=== PATIENT | female | born 1995 | race African-American/Black ===

== ENCOUNTER 2017-06-08 06:52 | Emergency (ER) | payer OTHER, SELFPAY ==
[2017-06-08 07:35] LABS: Hematocrit 39.2 % (36.0-47.0); Mean Platelet Volume 8.1 fL (7.4-10.4); White Blood Cell (WBC) Count 10.1 thou/uL (4.8-10.8)
[2017-06-08 07:43] LABS: Band 3 % (5-11); Neutrophil 71 % (31-61)
[2017-06-08 07:47] LABS: ALT (SGPT) 9 U/L (8-55); AST (SGOT) 14 U/L (5-34); Alkaline Phosphatase 71 U/L (40-150); Anion Gap 13 mmol/L (10-20); BUN (Urea Nitrogen) 17 mg/dL (7.0-18.7); Bilirubin, Total 0.5 mg/dL (0.2-1.2); Calc. Creatinine Clearance 0 mL/min (70-130); Calcium 9.6 mg/dL (7.8-10.44); Carbon Dioxide 23 mmol/L (22-29); Chloride 105 mmol/L (98-107); Estimated GFR-MDRD Greater than 90; Globulin 4.4 g/dL (2.4-3.5); Lipase 22 U/L (8-78); Protein, Total 8.8 g/dL (6.0-8.3)
[2017-06-08 08:02] LABS: Bilirubin Negative (Negative); Blood, Urine Moderate (Negative); Glucose, Urine (Dipstick) Negative (Negative); Ketone, Urine Negative (Negative); Nitrite Positive (Negative); Protein, Urine (Dipstick) 100 mg/dL (Neg-Trace)
[2017-06-08 08:03] LABS: Bacteria/HPF 4+ HPF (None Seen); Hyaline Casts/LPF 4-6 HYALINE CAST LPF (0-3 Hyaline); Squamous Epithelial 0-3 HPF (0-3)
[2017-06-08 08:18] LABS: Yeast-All Forms None Seen HPF (None Seen)
== END 2017-06-08 10:18 | disposition home or self-care (01) ==
LOC: ERS 06:52
DX: N39.0 Urinary tract infection, site not specified (principal)
CPT/HCPCS: 36415; 80053; 81003; 81015; 81025; 83690; 84702; 85025; 86900; 86901; 87077; 87086; 87186; 99284

== ENCOUNTER 2017-06-12 18:46 | Inpatient (IN) | payer SELFPAY ==
[~2017-06-12 18:46] MED LIST: ISOVUE-370 76%-LOCM 1 ML ONE
[2017-06-12] MEDS ORDERED: Ondansetron ODT 4 MG TAB ONE (19:22)
[2017-06-12] MEDS ORDERED: Acetaminophen 500 MG TAB ONE (19:29)
[2017-06-12 19:47] LABS: Hematocrit 33.4 % (36.0-47.0); Mean Platelet Volume 8.1 fL (7.4-10.4); Red Blood Cell (RBC) Count 3.96 mill/uL (4.00-5.20); White Blood Cell (WBC) Count 20.6 thou/uL (4.8-10.8)
[2017-06-12 19:47] LABS: Bilirubin Small (Negative); Blood, Urine Small (Negative); Glucose, Urine (Dipstick) Negative (Negative); Ketone, Urine Trace mg/dL (Negative); Nitrite Negative (Negative); Protein, Urine (Dipstick) 100 mg/dL (Neg-Trace)
[2017-06-12 19:50] LABS: Bacteria/HPF Rare-Few HPF (None Seen)
[2017-06-12 19:59] LABS: Hyaline Casts/LPF 0-3 HYALINE CAST LPF (0-3 Hyaline)
[2017-06-12 20:00] LABS: Yeast-All Forms None Seen HPF (None Seen)
[2017-06-12 20:01] LABS: Anisocytosis SLIGHT = 6-15 cells (100X) (0-5/hpf); Band 30 % (5-11); Dohle Bodies SLIGHT; Neutrophil 67 % (31-61); Ovalocytes SLIGHT = 2-5 cells (100X) (0-1/hpf); Polychromasia SLIGHT = 2-3 cells (100X) (0-2/hpf); Schistocytes SLIGHT = 2-5 cells (100X) (0-1/hpf); Target Cells SLIGHT = 2-5 cells (100X) (0-1/hpf); Toxic Granulation SLIGHT; Vacuoles SLIGHT
[2017-06-12 20:10] LABS: ALT (SGPT) 26 U/L (8-55); AST (SGOT) 32 U/L (5-34); Alkaline Phosphatase 116 U/L (40-150); Anion Gap 13 mmol/L (10-20); BUN (Urea Nitrogen) 30 mg/dL (7.0-18.7); Bilirubin, Total 0.8 mg/dL (0.2-1.2); Calc. Creatinine Clearance 0 mL/min (70-130); Calcium 9.4 mg/dL (7.8-10.44); Carbon Dioxide 24 mmol/L (22-29); Chloride 102 mmol/L (98-107); Estimated GFR-MDRD 58; Globulin 4.8 g/dL (2.4-3.5); Protein, Total 8.4 g/dL (6.0-8.3)
[2017-06-12] MEDS ORDERED: Morphine 2 MG/ML SYRINGE ONE (21:05)
[2017-06-12 21:15] LABS: Lactic Acid - Sepsis 1.2 mmol/L (0.5-2.2)
[2017-06-12] MEDS ORDERED: Sodium Chloride 0.9% 100 ML ONE (21:48)
[2017-06-12] MEDS ORDERED: cefTRIAXone\\ROCEPHIN 2 GM VIAL ONE (21:48)
--- NOTE | 2017-06-12 21:49 | RAD ---
AP CHEST: History: Chest pain. FINDINGS: The lungs are well aerated. No evidence of active intrathoracic disease seen. No evidence of effusio ns, pneumonia, or pneumothorax seen. IMPRESSION: Unremarkable AP chest. POS: [facility]
--- NOTE | 2017-06-12 22:26 | CT ---
ABDOMEN AND PELVIC CT WITH CONTRAST: Clinical history: 21-year-old female with sepsis alert. Pain. Nausea/vomiting. FINDINGS: Mild volume loss is seen at the lung bases. There is moderate distention of the gallbladder with inc reased intraluminal density, wall hyperdensity and pericholecystic fluid. Moderate retained fecal ma terial of the colon is present. There is patchy, heterogenous enhancement of the kidneys bilaterally although more pronounced involving the left kidney. Mild prominence of the left renal collecting sy stem is seen. Pancreas is homogeneous in density. There is mild periportal edema. Borderline size sp kathy is seen. Abdominal aorta is normal in caliber. No free air. Mild nonspecific abdominal/pelvic a scites is present. There are few borderline sized retroperitoneal lymph nodes. No acute osseous path ology. There is heterogeneity of the uterus and adnexa, nonspecific. Findings may be on the basis of physiologic change. Correlate clinically. IMPRESSION: 1. Evidence of pyelonephritis, more notable involving the left kidney. 2. Moderate distention of the gallbladder with internal increased density and mild pericholecystic f luid. This may be further assessed with follow up gallbladder ultrasound. 3. Additional details as above. POS: [facility]
[2017-06-12] MEDS ORDERED: Bisacodyl 10 MG SUPP PR PRN (23:31)
[2017-06-12] MEDS ORDERED: Ondansetron ODT 4 MG TAB PO PRN (23:31)
[2017-06-12] MEDS ORDERED: Bisacodyl 5 MG TAB PO PRN (23:31)
[2017-06-12] MEDS ORDERED: Ondansetron HCl/PF 4 MG/2 ML Vial IVP PRN (23:31)
[2017-06-12] MEDS ORDERED: Acetaminophen 650 MG Suppository PR PRN (23:31)
[2017-06-12] MEDS ORDERED: Calcium Carbonate 500 MG ChewTAB PO PRN (23:31)
[2017-06-12] MEDS: Sodium Chloride 0.9% 1,000 ML IV SCH (23:50)
[2017-06-12] MEDS ORDERED: Polyethylene Glycol 3350 17 GM Packet PO PRN (23:53)
[2017-06-13 00:04] LABS: Lactic Acid - Sepsis 0.7 mmol/L (0.5-2.2)
[2017-06-13] MEDS: Acetaminophen 325 MG TAB PO PRN ×3 (04:58→20:00)
[2017-06-13] MEDS: Sodium Chloride 0.9% 1,000 ML IV SCH ×3 (05:03→18:06)
--- NOTE | 2017-06-13 06:23 | HP-2 ---
LOCATION: [facility] CODE STATUS: FULL. PRIMARY CARE PHYSICIAN: Dr. Mckinley ATTENDING: Dr. Shayy Jackson RESIDENT: Clay Hemphill M.D. CHIEF COMPLAINT: Vomiting and fevers. HISTORY OF PRESENT ILLNESS: This is a 25-year-old female that recently presented t o the ER 3 days ago. At that time she was having fever and having some pain. She was found to have a UTI at this ER visit, was given Bactrim. She had continued taking Bactrim for the last 3 days. She said she continued to have fevers and vomiting that started 2 days ago. She said she has vomite d at least 20 times in the last few days. She has been able to keep fluids down, but has not been a ble to keep food down and not able to eat. She has no history of heartburn and denies any colicky p ain and denies any pain when eating fatty foods. She denies any promiscuous sexual history. No rec ent multiple sexual contacts. In the ER, she was started on vancomycin and Rocephin. PAST MEDICAL HISTORY: None. PAST SURGICAL HISTORY: She has had two C-sections. ALLERGIES: No known drug allergies. MEDICATIONS: She has been taking Aleve for fever. FAMILY HISTORY: None. SOCIAL HISTORY: She is a never smoker, never alcohol. No illicit drug use. REVIEW OF SYSTEMS: She does report having been constipated for the last few days. All other review of systems not listed here are otherwise negative at this time. PHYSICAL EXAMINATION: VITAL SIGNS: Blood pressure is 97/63, pulse 101, respirations 21, temperature is 99.3, pulse oximet ry 91% on room air. GENERAL: She is alert and oriented x3. Well-developed, well-nourished, appropriately interactive. EYES: PERRLA. Conjunctivae normal. ENT: Nasal mucosa were normal. Oropharynx within normal limit. NECK: Supple, no lymphadenopathy, no thyromegaly. CARDIOVASCULAR: Regular rate and rhythm. No murmurs or gallops. Radial pulses, pedal pulses palpa tangela bilaterally. RESPIRATORY: Normal breathing effort. No retractions. Lungs are clear to auscultation bilateral. SKIN: Warm and dry. No lesions noted. Normal capillary refill. ABDOMEN: Soft. It is mildly tender to palpation in the epigastric area and the right and left uppe r quadrant. Bowel sounds heard in all 4 quadrants. No masses or distention. MUSCULOSKELETAL: Moves all extremities bilaterally. NEUROLOGIC: No focal neuro deficit. PSYCHIATRIC: Appropriate. LABORATORY: White blood cell count 20.6, hemoglobin 10.6, hematocrit 33.4, platelets 241, 30% bands and 67% neutrophils. Sodium is 135, potassium 3.7, chloride 102, CO2 is 24, BUN is 30, creatinine 1.4, glucose is 120, calcium is 9.4, AST 32, ALT 26, alkaline phosphatase 116, total bilirubin 0.4, albumin 3.6, total bilirubin is 0.8. Lactic acid is 1.2. Her UA today 06/12/2017 was positive for 100 urine protein, trace of urine ketones, small urine bloo d, negative nitrites, showed a small bilirubin, showed 1 urobilinogen. Moderate leukocyte esterase, 4-6 red blood cells, 11-20 white blood cells, and 7-10 squamous epithel ial cells, rare to few bacteria, 0-3 hyaline casts. On her other ER visit from 06/08/2017, comparing her UA showed 100 urine protein, negative glucose, negative ketones, moderate blood, positive nitrites, negative bilirubin, 1 urobilinogen, large leuko cyte esterase, 7-10 red blood cells, greater than 50 white blood cells, 0-3 squamous epithelial cell s, 4+ bacteria and 4-6 hyaline casts. And then on 06/08/2017, they did do a urine culture at that t [facility], the sensitivities came back, it did show that it grew E. coli and it was resistant to Bactrim a t that time. They also did a chest x-ray which is unremarkable AP chest. ASSESSMENT AND PLAN: 1. Sepsis secondary to urinary tract infection. We will continue Rocephin at this time. From her reports from her urine culture from 06/08/2017, E. coli is sensitive to Rocephin. We will repeat ur ine cultures at this time. We will start her on normal saline at 150. We will give Tylenol for fev er, Zofran for nausea. We will repeat a CBC in the morning. Also, will get blood cultures and cont inue to follow. 2. Acute kidney injury likely it is secondary to fluid loss from vomiting. We will give fluids as in the plan above. We will recheck BMP in the morning and continue to trend creatinine. The patient is a low risk for VTE. Does not need prophylaxis at this time.
--- NOTE | 2017-06-13 06:35 | PDOC.FM ---
- Subjective Subjective: Pt states that she is starting to feel better this morning, however is still complaining of fever and loss of appetite. She has no other specific complains and denies other symptoms in ROS. There were no issues over night. - Objective Vital Signs & Weight: Vital Signs (12 hours) Temp Pulse Resp BP Pulse Ox 06/13/17 05:50 100.1 F H 06/13/17 04:55 99.7 F H 114 H 22 H 109/52 L 06/12/17 23:40 98.2 F 92 20 98/57 L 98 Weight Weight 68 kg I&O: 06/11/17 06/12/17 06/13/17 06:59 06:59 06:59 Intake Total 1083 Output Total 300 Balance 783 Result Diagrams: 06/12/17 19:40 06/12/17 19:40 <Jorge A Angel - Last Filed: 06/13/17 06:33> - Objective Vital Signs & Weight: Vital Signs (12 hours) Temp Pulse Resp BP Pulse Ox 06/13/17 15:10 99.6 F 112 H 20 100/54 L 06/13/17 12:36 95 96/54 L 06/13/17 11:24 97.8 F 95 20 83/50 L 06/13/17 08:52 103 H 103/54 L 06/13/17 07:48 98.5 F 112 H 20 93/51 L 06/13/17 07:27 98.5 F 95 19 99 06/13/17 05:50 100.1 F H 06/13/17 04:55 99.7 F H 114 H 22 H 109/52 L Weight Admit Weight 68 kg Weight 68 kg I&O: 06/12/17 06/13/17 06/14/17 06:59 06:59 06:59 Intake Total 1083 Output Total 300 550 Balance 783 -550 Result Diagrams: 06/13/17 04:55 06/13/17 04:55 <Zoraida Wagner - Last Filed: 06/13/17 15:52> Phys Exam - Physical Examination Constitutional: NAD HEENT: PERRLA, moist MMs Neck: no nodes Respiratory: clear to auscultation bilateral tachycardia, grade 5 murmur over all valves that radiates to the carotid Gastrointestinal: soft, positive bowel sounds CVA tenderness Musculoskeletal: no edema Neurological: non-focal Lymphatic: no nodes Psychiatric: normal affect, A&O x 3 Skin: no rash <Jorge A Angel - Last Filed: 06/13/17 06:33> Dx/Plan (1) Sepsis Code(s): A41.9 - SEPSIS, UNSPECIFIED ORGANISM Status: Acute (2) Pyelonephritis Code(s): N12 - TUBULO-INTERSTITIAL NEPHRITIS, NOT SPCF ACUTE OR CHRONIC Status: Acute (3) Anemia Code(s): D64.9 - ANEMIA, UNSPECIFIED Status: Acute Qualifiers: Anemia type: unspecified type Qualified Code(s): D64.9 - Anemia, unspecified (4) ALVARADO (acute kidney injury) Code(s): N17.9 - ACUTE KIDNEY FAILURE, UNSPECIFIED Status: Acute (5) Systolic murmur Code(s): R01.1 - CARDIAC MURMUR, UNSPECIFIED Status: Acute - Plan Plan: 1. Sepsis 2/2 Pyelonephritis -cx pending -pt clinically improving on rocephin -previous cx show sensitivity to rocephin. -continue fluid support -encourage po intake, give zofran for n/v 2. ALVARADO -likely 2/2 low fluid status -IVF as above -monitor BMP 3. Anemia -FDLMP 05/24. 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 Systolic Murmur -this is apparently new -consider echo <Jorge A Angel - Last Filed: 06/13/17 06:33> Attending Addendum - Attending Addendum I personally evaluated the patient and discussed the management with Dr. Angel. I agree with the History, Examination, Assessment and Plan documented above with any addition or exceptions noted below. The patient's heart murmur is improved from this morning at 2/6. Will get echo. She remains tachycardic and will bolus IV fluids. Continue IV antibiotics. Cultures are pending. <Zoraida Wagner - Last Filed: 06/13/17 15:52>
[2017-06-13 06:44] LABS: Anion Gap 14 mmol/L (10-20); BUN (Urea Nitrogen) 19 mg/dL (7.0-18.7); Calc. Creatinine Clearance 102 mL/min (70-130); Calcium 8.8 mg/dL (7.8-10.44); Carbon Dioxide 20 mmol/L (22-29); Chloride 108 mmol/L (98-107); Estimated GFR-MDRD Greater than 90
--- NOTE | 2017-06-13 06:48 | HP ---
DATE OF ADMISSION: 06/12/2017 ATTENDING: Shayy Jackson D.O. RESIDENT: MD Dr. Kanchan Veliz's H and P reviewed and case discussed. Pertinent portions of the history and physical we re repeated by myself. I agree with the assessment and plan with the following addendum. Ms. Davis is a pleasant 21-year-old -Swiss female with a past medical history significa nt for chronic constipation, who presents with sepsis secondary to UTI, failed outpatient treatment. She initially presented to the ER 4 days ago for dysuria, abdominal pain, and fever, and was diagn osed with a UTI and was discharged home on Bactrim. In the meantime, her urine was cultured. On re view of that culture, it does appear that is resistant to Bactrim, it is an E. coli that was sensiti ve to Rocephin, so we will start Rocephin today. Her sepsis was noted with fever and elevated white count. It does not appear to be severe and has improved with aggressive IV resuscitation. Pregnan cy test was negative. In addition, a CT scan showed a likely left pyelonephritis and some pericolic fluid around her gallbladder. We will perform a right upper quadrant ultrasound in the morning to evaluate further for the gallbladder and in addition, we will start on a regimen of MiraLax for her chronic constipation.
[2017-06-13 07:09] LABS: Hematocrit 36.6 % (36.0-47.0); Mean Platelet Volume 8.6 fL (7.4-10.4); Red Blood Cell (RBC) Count 4.25 mill/uL (4.00-5.20); White Blood Cell (WBC) Count 17.1 thou/uL (4.8-10.8)
[2017-06-13 07:55] LABS: Iron Less than 8 ug/dL (50-170)
[2017-06-13 08:06] LABS: Band 28 % (5-11); Burr Cells SLIGHT = 2-5 cells (100X) (0-1/hpf); Neutrophil 57 % (31-61); Nucleated RBC 1 % (0)
--- NOTE | 2017-06-13 08:30 | ULT ---
RIGHT UPPER QUADRANT ULTRASOUND: Date: 06-13-17 Comparison: CT abdomen/pelvis 06-12-17. History: Fever, pain. Technique: Multiplanar grayscale sonographic imaging of the right upper quadrant obtained. FINDINGS: Imaged pancreatic parenchyma is unremarkable. Distal body and tail are obscured by bowel gas. No focal liver lesion or intrahepatic biliary dilatation is noted. Right kidney measures 10.9 cm in craniocaudal dimension and demonstrates no stone, hydronephrosis, or mass lesion. No gallbladder wall thickening. No significant pericholecystic fluid. No gallstones seen. The sonogr aphic Roberts's sign is negative. A small amount of sludge is suspected within the gallbladder lumen. The common bile duct measures 3 mm, within normal limits. The manager utilization reports a negative Roberts 's sign. IMPRESSION: Gallbladder sludge with no evidence for cholelithiasis, cholecystitis, or biliary dilatation. POS: [facility]
[2017-06-13] MEDS: Docusate 100 MG CAP PO SCH ×2 (10:21→20:01)
[2017-06-13] MEDS ORDERED: Sodium Chloride 0.9% 500 ML IV SCH ×2 (11:15→15:30)
[2017-06-13 14:45] VITALS: BMI 27.3
[2017-06-13] MEDS ORDERED: cefTRIAXone\\ROCEPHIN 2 GM in Sodium Chloride 0.9% 100 ML IVPB SCH (21:00)
[2017-06-14] MEDS: Sodium Chloride 0.9% 1,000 ML IV SCH ×5 (00:16→20:09)
[2017-06-14] MEDS: Acetaminophen 325 MG TAB PO PRN ×2 (04:13→17:47)
[2017-06-14 06:16] LABS: #Lymphocytes 1.3 thou/uL (1.20-3.40); #Monocytes 1.1 thou/uL (0.11-0.59); #Neutrophils 8.5 thou/uL (1.40-6.50); %Basophils 0.1 % (0.0-1.0); %Eosinophils 0.3 % (0.0-10.0); %Monocytes 10.3 % (0.0-4.0); Hematocrit 28.4 % (36.0-47.0); Mean Platelet Volume 7.2 fL (7.4-10.4); Red Blood Cell (RBC) Count 3.34 mill/uL (4.00-5.20); White Blood Cell (WBC) Count 10.9 thou/uL (4.8-10.8)
[2017-06-14 06:39] LABS: Anion Gap 8 mmol/L (10-20); BUN (Urea Nitrogen) 6 mg/dL (7.0-18.7); Calc. Creatinine Clearance 130 mL/min (70-130); Calcium 8.2 mg/dL (7.8-10.44); Carbon Dioxide 21 mmol/L (22-29); Chloride 111 mmol/L (98-107); Estimated GFR-MDRD Greater than 90
--- NOTE | 2017-06-14 07:11 | PDOC.FM ---
- Subjective Subjective: Pt states that she feels about the same today. She complains of decreased appetite, though she does have improved n/v when she does eat. She denies flank pain, fever, chills, hematuria. There were no acute events over night. - Objective MAR Reviewed: Yes Vital Signs & Weight: Vital Signs (12 hours) Temp Pulse Resp BP BP Pulse Ox 06/14/17 05:44 99.7 F H 06/14/17 04:00 102.0 F H 115 H 18 104/58 L 99 06/14/17 00:00 109 H 18 97/52 L 06/13/17 20:00 98.9 F 100 16 99/56 L 100 Weight Admit Weight 68 kg Weight 68 kg I&O: 06/13/17 06/14/17 06/15/17 06:59 06:59 06:59 Intake Total 1083 1881 Output Total 300 850 Balance 783 1031 Result Diagrams: 06/14/17 06:09 06/14/17 06:08 <Jorge A Angel - Last Filed: 06/14/17 07:29> - Objective Vital Signs & Weight: Vital Signs (12 hours) Temp Pulse Resp BP BP Pulse Ox 06/14/17 08:00 98.9 F 89 16 99 06/14/17 07:15 98.9 F 89 16 116/58 L 99 06/14/17 05:44 99.7 F H 06/14/17 04:00 102.0 F H 115 H 18 104/58 L 99 06/14/17 00:00 109 H 18 97/52 L Weight Admit Weight 68 kg Weight 68 kg I&O: 06/13/17 06/14/17 06/15/17 06:59 06:59 06:59 Intake Total 1083 1881 Output Total 300 850 Balance 783 1031 Result Diagrams: 06/14/17 06:09 06/14/17 06:08 <Zoraida Wagner - Last Filed: 06/14/17 10:44> Phys Exam - Physical Examination Constitutional: NAD HEENT: moist MMs Neck: full ROM Respiratory: clear to auscultation bilateral Cardiovascular: RRR grade 2 systolic murmur that radiates to the carotid Gastrointestinal: soft diffuse mild tenderness. No CVA tenderness Musculoskeletal: no edema Neurological: non-focal Psychiatric: normal affect, A&O x 3 Skin: no rash <Jorge A Angel - Last Filed: 06/14/17 07:29> Dx/Plan (1) Sepsis Code(s): A41.9 - SEPSIS, UNSPECIFIED ORGANISM Status: Acute (2) Pyelonephritis Code(s): N12 - TUBULO-INTERSTITIAL NEPHRITIS, NOT SPCF ACUTE OR CHRONIC Status: Acute (3) Anemia Code(s): D64.9 - ANEMIA, UNSPECIFIED Status: Acute Qualifiers: Anemia type: unspecified type Qualified Code(s): D64.9 - Anemia, unspecified (4) ALVARADO (acute kidney injury) Code(s): N17.9 - ACUTE KIDNEY FAILURE, UNSPECIFIED Status: Acute (5) Systolic murmur Code(s): R01.1 - CARDIAC MURMUR, UNSPECIFIED Status: Acute - Plan Plan: 1. Sepsis 2/2 Pyelonephritis -cx have no growth thus far. Continue to base abx on 06/08 cx -Changed abx to levaquin yesterday dt concerns of gallbladder sludge on US -pt clinically improving and WBC count is improving. Continue current plan -continue fluid support until tachycardia resolves -encourage po intake, give zofran for n/v 2. ALVARADO -resolved -monitor BMP 3. Anemia -FDLMP 05/24. She apparently normally has fairly heavy periods, however this one was noticeably manager decision support than normal -iron studies are suggestive of anemia of chronic dx, however pt denies hx. Smear pending. 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 Systolic Murmur -this is apparently new -pending echo read <Jorge A Angel - Last Filed: 06/14/17 07:29> Attending Addendum - Attending Addendum I personally evaluated the patient and discussed the management with Dr. Angel. I agree with the History, Examination, Assessment and Plan documented above with any addition or exceptions noted below. The patient's flank pain is improving. Appetite is still poor. Will continue IV antibiotics. Encourage po intake. Anticipate d/c in next 1-2 days. <Zoraida Wagner - Last Filed: 06/14/17 10:44>
[2017-06-14] MEDS: Docusate 100 MG CAP PO SCH ×2 (09:04→20:09)
[2017-06-15] MEDS: Sodium Chloride 0.9% 1,000 ML IV SCH ×3 (01:10→09:23)
[2017-06-15] MEDS: Acetaminophen 325 MG TAB PO PRN (03:32)
[2017-06-15 04:32] LABS: #Basophils 0.1 thou/uL (0.0-0.2); #Eosinphils 0.1 thou/uL (0.0-0.7); #Lymphocytes 1.6 thou/uL (1.20-3.40); #Monocytes 0.8 thou/uL (0.11-0.59); #Neutrophils 5.6 thou/uL (1.40-6.50); %Basophils 0.7 % (0.0-1.0); %Eosinophils 0.7 % (0.0-10.0); %Lymphocytes 19.7 % (28.0-48.0); %Monocytes 9.5 % (0.0-4.0); Hematocrit 27.9 % (36.0-47.0); Mean Platelet Volume 7.4 fL (7.4-10.4); Red Blood Cell (RBC) Count 3.31 mill/uL (4.00-5.20)
[2017-06-15 04:55] LABS: Anion Gap 9 mmol/L (10-20); BUN (Urea Nitrogen) 4 mg/dL (7.0-18.7); Calc. Creatinine Clearance 140 mL/min (70-130); Calcium 8.4 mg/dL (7.8-10.44); Carbon Dioxide 20 mmol/L (22-29); Chloride 111 mmol/L (98-107); Estimated GFR-MDRD Greater than 90
[2017-06-15] MEDS ORDERED: Potassium Chloride 20 MEQ TAB PO SCH (06:03)
[2017-06-15 07:49] VITALS: BP 110/60; TEMP 99
--- NOTE | 2017-06-15 08:06 | PDOC.FM ---
- Subjective Subjective: Pt feels much better today. Denies malaise or any pain. N/v has resolved and pt is tolerating PO intake well. All symptoms in ROS are negative. Pt did have a fever over night that responded to tylenol. - Objective Vital Signs & Weight: Vital Signs (12 hours) Temp Pulse Resp BP Pulse Ox 06/15/17 07:30 99.0 F 83 16 110/60 96 06/15/17 04:39 99.3 F 06/15/17 03:28 101.4 F H 06/14/17 23:31 99.8 F H Weight Admit Weight 68 kg Weight 68 kg I&O: 06/14/17 06/15/17 06/16/17 06:59 06:59 06:59 Intake Total 1881 6860 Output Total 850 Balance 1031 6860 Result Diagrams: 06/15/17 03:40 06/15/17 03:40 <Jorge A Angel - Last Filed: 06/15/17 08:04> - Objective Vital Signs & Weight: Vital Signs (12 hours) Temp Pulse Resp BP Pulse Ox 06/15/17 08:00 99.0 F 83 16 96 06/15/17 07:30 99.0 F 83 16 110/60 96 06/15/17 04:39 99.3 F 06/15/17 03:28 101.4 F H 06/14/17 23:31 99.8 F H Weight Admit Weight 68 kg Weight 68 kg I&O: 06/14/17 06/15/17 06/16/17 06:59 06:59 06:59 Intake Total 1881 6860 Output Total 850 Balance 1031 6860 Result Diagrams: 06/15/17 03:40 06/15/17 03:40 <Zoraida Wagner - Last Filed: 06/15/17 09:45> Phys Exam - Physical Examination Constitutional: NAD HEENT: moist MMs Neck: no nodes Respiratory: clear to auscultation bilateral Cardiovascular: RRR systolic murmur 2/6 Gastrointestinal: soft, non-tender, no distention, positive bowel sounds Musculoskeletal: no edema Neurological: non-focal, normal sensation Skin: no rash <Jorge A Angel - Last Filed: 06/15/17 08:04> Dx/Plan (1) Sepsis Code(s): A41.9 - SEPSIS, UNSPECIFIED ORGANISM Status: Resolved Qualifiers: Sepsis type: sepsis due to unspecified organism Qualified Code(s): A41.9 - Sepsis, unspecified organism (2) Pyelonephritis Code(s): N12 - TUBULO-INTERSTITIAL NEPHRITIS, NOT SPCF ACUTE OR CHRONIC Status: Acute (3) Anemia Code(s): D64.9 - ANEMIA, UNSPECIFIED Status: Acute Qualifiers: Anemia type: iron deficiency Iron deficiency anemia type: unspecified iron deficiency Qualified Code(s): D50.9 - Iron deficiency anemia, unspecified (4) ALVARADO (acute kidney injury) Code(s): N17.9 - ACUTE KIDNEY FAILURE, UNSPECIFIED Status: Resolved (5) Systolic murmur Code(s): R01.1 - CARDIAC MURMUR, UNSPECIFIED Status: Acute - Plan Plan: 1. Sepsis 2/2 Pyelonephritis -no longer meets sepsis criteria. Tachycardia and hypotension have resolved. -cx have no growth thus far. Continue to base abx on 06/08 cx -Changed abx to levaquin yesterday dt concerns of gallbladder sludge on US. Consider PO abx today -pt clinically improving and elevated WBC has resolved. Continue current plan -encourage po intake, give zofran for n/v -may dc this afternoon if fever does not return. Otherwise likely in am. 2. ALVARADO -resolved -monitor BMP 3. Anemia -FDLMP 05/24. 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 Smear pending. 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 Systolic Murmur -this is apparently new -echo shows mitral and tricuspid regurg, is not concerning for vegetation <Jorge A Angel - Last Filed: 06/15/17 08:04> Attending Addendum - Attending Addendum I personally evaluated the patient and discussed the management with Dr. Angel. I agree with the History, Examination, Assessment and Plan documented above with any addition or exceptions noted below. The patient is feeling much better. She is tolerating po intake and up moving around. Pain is resolved. She did have a fever overnight but this is expected with pyelonephritis. She is on appropriate antibiotics from urine culture prior to admission. <Zoraida Wagner - Last Filed: 06/15/17 09:45>
[2017-06-15] MEDS: Docusate 100 MG CAP PO SCH (09:23)
--- NOTE | 2017-06-15 14:26 | DIS-2 ---
DATE OF ADMISSION: 06/12/2017 DATE OF DISCHARGE: 06/15/2017 RESIDENT: Jorge A Angel D.O. ADMITTING ATTENDING: Shayy Jackson D.O. DISCHARGE ATTENDING: Zoraida Wagner M.D. CONSULTATIONS: None. PROCEDURES: None. PRIMARY DIAGNOSIS: Sepsis secondary to pyelonephritis. SECONDARY DIAGNOSES: Acute kidney injury and anemia. DISCHARGE MEDICATIONS: 1. Levaquin 750 mg p.o. daily x4. 2. Zofran 4 mg p.o. q.6 h. p.r.n. nausea. DISCONTINUED MEDICATIONS: None. HOSPITAL COURSE: The patient was admitted for sepsis secondary to an assumed pyelonephritis. She h ad been to the ER 2 days prior, where she was diagnosed with an UTI and empirically put on Bactrim. She came back to the ER with symptoms have not resolved and worsened to include additional symptoms of nausea, vomiting, fever, malaise, back pain. She was admitted for pyelonephritis. While admitt ed, sensitivities from the urine culture from previous ER visit showed E. coli that was resistant to Bactrim. She was given a dose of Rocephin in the emergency room and this was continued for the fir st day of hospitalization. During hospitalization, an ultrasound showed possible biliary sludge. T herefore, she was changed from Rocephin to Levaquin. Her nausea and pain resolved over the next 2 d ays. The night before discharge, she did have a fever that was controlled by Tylenol, and on day of discharge, she was able to tolerate p.o. food and drink without nausea. She had no more pain. I i nformed the patient that she could expect periodic fever for the next few days and to control with f ever, if symptoms being the worsen again to come back to the emergency room, otherwise to complete h er course of antibiotics and follow up with her PCP within a week. Incidentally, the patient was found to be anemic during her visit. A previous workup showed a possi ble cold-agglutinin anemia while hospitalized. There was no evidence of acute hemolysis. Bilirubin remained in a normal range. It is recommended to the patient that she seek an outpatient followup and continued workup. The patient's hemoglobin at its lowest was at 9.0 and she was asymptomatic. DISPOSITION: Stable. DISCHARGE INSTRUCTIONS: 1. Location: Home. 2. Diet: Regular. 3. Activity: Ad lacey. 4. Followup: With PCP, Dr. Maxim Mckinley, within 1 week.
== END 2017-06-15 13:51 | disposition home or self-care (01) | DRG 872 ==
LOC: ERS 18:46 → 3SE 23:30 → ONC 06-13 17:28
PROVIDERS: ADMIT Family Medicine; ATTEND Family Medicine
DX: A41.51 Sepsis due to Escherichia coli [E. coli] (principal); N17.9 Acute kidney failure, unspecified; I95.9 Hypotension, unspecified; N10 Acute pyelonephritis; N39.0 Urinary tract infection, site not specified; D64.9 Anemia, unspecified; K59.09 Other constipation; Z16.29 Resistance to other single specified antibiotic; D50.9 Iron deficiency anemia, unspecified; R01.1 Cardiac murmur, unspecified; R11.2 Nausea with vomiting, unspecified; R93.2 Abnormal findings on diagnostic imaging of liver and biliary tract
CPT/HCPCS: 36415; 71010; 74177; 76705; 80048; 80053; 81003; 81015; 81025; 82247; 82728; 83540; 83550; 83605; 85025; 85060; 87040; 87086; 93005; 93306; 96361; 96365; 96366; 96367; 96368; J0696; J1956; J2270; J2405; J3370; J7050; Q0162

== ENCOUNTER 2018-01-09 15:53 | Emergency (ER) | payer SELFPAY ==
[2018-01-09 16:44] LABS: Pregnancy Test - Urine (BHCG) Negative (Negative); Pregu Control Background? CLEAR/WHITE (CLR/WHITE); Pregu Control Bar Appear? YES (CONTROL BAR); Specific Gravity 1.025 (1.002-1.036)
[2018-01-09 16:45] LABS: Bilirubin Negative (Negative); Blood, Urine Moderate (Negative); Clarity Hazy (Clear); Glucose, Urine (Dipstick) Negative (Negative); Leukocyte Negative (Negative); Nitrite Negative (Negative); Protein, Urine (Dipstick) Negative (Neg-Trace); Specific Gravity, Urine 1.025 (1.005-1.030); pH, Urine 6.5 (5.0-9.0)
[2018-01-09 16:46] LABS: Bacteria/HPF 2+ HPF (None Seen); Squamous Epithelial 21-50 HPF (0-3); WBC/HPF None Seen HPF (0-3)
[2018-01-12 01:36] LABS: Chlamydia by PCR Not Detected (NotDetected); GC by PCR Not Detected (NotDetected)
== END 2018-01-09 17:08 | disposition home or self-care (01) ==
LOC: SCSER 15:53
DX: Z03.89 Encounter for observation for other suspected diseases and conditions ruled out (principal)
CPT/HCPCS: 81003; 81015; 81025; 87480; 87491; 87510; 87591; 87660; 99283

== ENCOUNTER 2018-04-29 14:18 | Emergency (ER) | payer SELFPAY | END 2018-04-29 15:41 | disposition home or self-care (01) | LOC: SCSER 14:18 | DX: R21 Rash and other nonspecific skin eruption (principal) | CPT/HCPCS: 99282 ==

== ENCOUNTER 2018-09-03 14:56 | Emergency (ER) | payer SELFPAY ==
[2018-09-03 16:43] LABS: Bilirubin Negative (Negative); Blood, Urine Negative (Negative); Clarity CLOUDY (Clear); Glucose, Urine (Dipstick) Negative (Negative); Leukocyte Moderate (Negative); Nitrite Positive (Negative); Protein, Urine (Dipstick) Trace mg/dL (Neg-Trace); Specific Gravity, Urine 1.019 (1.002-1.036); pH, Urine 7.5 (5.0-9.0)
[2018-09-03 16:44] LABS: Pregnancy Test - Urine (BHCG) Negative (Negative); Pregu Control Background? CLEAR/WHITE (CLR/WHITE); Pregu Control Bar Appear? YES (CONTROL BAR); Specific Gravity 1.019 (1.002-1.036)
[2018-09-03 16:45] LABS: Bacteria/HPF 4+ HPF (None Seen); Pathc Cast-AUWi Flag 1.45 (0-2.49)
[2018-09-03 16:56] LABS: Hyaline Casts/LPF 0-3 HYALINE CAST LPF (0-3 Hyaline)
== END 2018-09-03 17:15 | disposition home or self-care (01) ==
LOC: ERS 14:56
DX: N76.0 Acute vaginitis (principal); N39.0 Urinary tract infection, site not specified
CPT/HCPCS: 81003; 81015; 81025; 99283

== ENCOUNTER 2018-09-05 16:38 | Emergency (ER) | payer SELFPAY ==
[2018-09-05 17:59] LABS: #Lymphocytes 1.4 thou/uL (1.20-3.40); #Monocytes 0.7 thou/uL (0.11-0.59); #Neutrophils 4.8 thou/uL (1.40-6.50); %Basophils 0.3 % (0.0-1.0); %Eosinophils 0.3 % (0.0-10.0); %Lymphocytes 20.9 % (21.0-51.0); %Monocytes 9.4 % (0.0-10.0); %Neutrophils 69.2 % (42.0-75.0); Hemoglobin 11.8 g/dL (12.0-16.0); Mean Corpuscular HGB CONC 33.9 g/dL (32.0-36.0); Mean Corpuscular Hemoglobin 28.4 pg (27.0-31.0); Mean Corpuscular Volume 83.7 fL (78.0-98.0); Mean Platelet Volume 8.3 fL (7.4-10.4); Platelet Count 220 thou/uL (130-400); RBC Distribution Width 13.6 % (11.5-14.5); Red Blood Cell (RBC) Count 4.14 mill/uL (4.20-5.40); White Blood Cell (WBC) Count 6.9 thou/uL (4.8-10.8)
[2018-09-05 18:21] LABS: ALT (SGPT) 8 U/L (8-55); AST (SGOT) 13 U/L (5-34); Albumin 4.3 g/dL (3.5-5.0); Alkaline Phosphatase 61 U/L (40-150); Anion Gap 14 mmol/L (10-20); BUN (Urea Nitrogen) 5 mg/dL (7.0-18.7); Bilirubin, Total 0.9 mg/dL (0.2-1.2); Calc. Creatinine Clearance 0 mL/min (70-130); Calcium 9.4 mg/dL (7.8-10.44); Carbon Dioxide 21 mmol/L (22-29); Chloride 105 mmol/L (98-107); Estimated GFR-MDRD Greater than 90; Glucose 86 mg/dL (70-105); Lipase 17 U/L (8-78); Potassium 3.7 mmol/L (3.5-5.1); Protein, Total 8.3 g/dL (6.0-8.3); Sodium 136 mmol/L (136-145)
== END 2018-09-05 22:43 | disposition left against medical advice (07) ==
LOC: ERS 16:38
DX: Z53.21 Procedure and treatment not carried out due to patient leaving prior to being seen by health care provider (principal)
CPT/HCPCS: 36415; 80053; 83690; 85025

== ENCOUNTER 2018-09-06 15:39 | Emergency (ER) | payer SELFPAY ==
[2018-09-06 19:26] LABS: Bilirubin Negative (Negative); Blood, Urine Large (Negative); Clarity CLOUDY (Clear); Glucose, Urine (Dipstick) Negative (Negative); Leukocyte Moderate (Negative); Nitrite Negative (Negative); Protein, Urine (Dipstick) Trace mg/dL (Neg-Trace); Specific Gravity, Urine 1.006 (1.002-1.036)
[2018-09-06 19:30] LABS: #Lymphocytes 1.6 thou/uL (1.20-3.40); #Neutrophils 7.2 thou/uL (1.40-6.50); %Basophils 0.4 % (0.0-1.0); %Eosinophils 0.4 % (0.0-10.0); %Lymphocytes 16.2 % (21.0-51.0); %Monocytes 9.8 % (0.0-10.0); %Neutrophils 73.2 % (42.0-75.0); Bacteria/HPF Rare-Few HPF (None Seen); Hemoglobin 11.1 g/dL (12.0-16.0); Hyaline Casts/LPF 0-3 HYALINE CAST LPF (0-3 Hyaline); Mean Corpuscular HGB CONC 31.9 g/dL (32.0-36.0); Mean Corpuscular Hemoglobin 26.8 pg (27.0-31.0); Mean Corpuscular Volume 83.9 fL (78.0-98.0); Mean Platelet Volume 8.3 fL (7.4-10.4); Pathc Cast-AUWi Flag 0.14 (0-2.49); Platelet Count 232 thou/uL (130-400); RBC Distribution Width 13.8 % (11.5-14.5); Red Blood Cell (RBC) Count 4.15 mill/uL (4.20-5.40); White Blood Cell (WBC) Count 9.9 thou/uL (4.8-10.8)
[2018-09-06 19:35] LABS: Yeast-AUWi Flag 52.6 (0-25.0)
[2018-09-06 19:45] LABS: ALT (SGPT) 8 U/L (8-55); AST (SGOT) 12 U/L (5-34); Albumin 4.4 g/dL (3.5-5.0); Alkaline Phosphatase 60 U/L (40-150); Anion Gap 16 mmol/L (10-20); BUN (Urea Nitrogen) 8 mg/dL (7.0-18.7); Bilirubin, Total 0.8 mg/dL (0.2-1.2); Calc. Creatinine Clearance 0 mL/min (70-130); Calcium 9.6 mg/dL (7.8-10.44); Carbon Dioxide 24 mmol/L (22-29); Chloride 100 mmol/L (98-107); Estimated GFR-MDRD Greater than 90; Globulin 4.4 g/dL (2.4-3.5); Glucose 80 mg/dL (70-105); Lipase 23 U/L (8-78); Potassium 3.5 mmol/L (3.5-5.1); Protein, Total 8.8 g/dL (6.0-8.3); Sodium 136 mmol/L (136-145)
[2018-09-06 19:47] LABS: Renal Epithelial None Seen HPF (0-3); Transitional Epithelial NONE SEEN HPF (0-3); Yeast-All Forms None Seen HPF (None Seen)
[2018-09-06] MEDS ORDERED: Acetaminophen 500 MG TAB ONE (19:55)
[2018-09-06 20:38] LABS: Pregnancy Test - Urine (BHCG) Negative (Negative); Pregu Control Background? CLEAR/WHITE (CLR/WHITE); Pregu Control Bar Appear? YES (CONTROL BAR); Specific Gravity 1.006 (1.002-1.036)
[2018-09-06] MEDS ORDERED: cefTRIAXone\\ROCEPHIN 1 GM VIAL ONE (22:18)
--- NOTE | 2018-09-06 22:40 | CT ---
CT ABDOMEN WITH CONTRAST CT PELVIS WITH CONTRAST: DATE: 09/06/18 at 9:36 p.m. HISTORY: 22-year-old female with right lower quadrant abdominal pain. COMPARISON: 06/12/17. TECHNIQUE: IV injection of iodinated contrast media: 100 mL Isovue 370 Oral contrast media: Not administered FINDINGS: Whereas previously, there was patchy, decreased enhancement throughout much of the left renal parench yma representing previous left pyelonephritis, the left kidney now has normal homogeneous enhancement . There is no hydronephrosis bilaterally. In the anterior cortex of the right renal lower/mid pole, there is an approximately 1 x 1 x 1 cm smal l, focal, patchy region of slightly low heterogeneous enhancement. There was a lesion on the previous CT in a similar location. It is uncertain whether or not this is the same lesion. The appearance is slightly different. This could be a very small hemorrhagic renal cyst. Located more laterally and slightly more superiorly at the lateral cortex of the right renal mid pole , there is a 1 x 1.5 x 1 cm heterogeneously low attenuation lesion, also with fuzzy margins. This was not present on the previous CT. Perhaps this represents another, new, small hemorrhagic renal cyst. They are less likely to represent acute tiny foci of pyelonephritis. The liver, abdominal aorta, pancreas, adrenals, and spleen, are normal. Unremarkable urinary bladder and uterus. No small bowel dilation. No signs of acute colonic diverticulitis. No ascites or pneumope ritoneum. The appendix is not identified with certainty. IMPRESSION: 1. Two small lesions in the right renal cortical parenchyma. Etiology is uncertain. Possibilitie s include small hemorrhagic renal cyst versus two small regions of focal pyelonephritis. Recommend fo llowup. 2. The appendix is not identified. 3. No other abnormality. MARV Eli POS: [facility]
== END 2018-09-06 22:59 | disposition home or self-care (01) ==
LOC: ERS 15:39
DX: R10.31 Right lower quadrant pain (principal); R30.0 Dysuria
CPT/HCPCS: 74177; 80053; 81003; 81015; 81025; 83690; 85025; 96361; 96365; J0696

== ENCOUNTER 2018-11-23 14:56 | Emergency (ER) | payer SELFPAY ==
[2018-11-23 16:06] LABS: Bilirubin Negative (Negative); Blood, Urine Negative (Negative); Clarity Hazy (Clear); Glucose, Urine (Dipstick) Negative (Negative); Leukocyte Small (Negative); Nitrite Negative (Negative); Protein, Urine (Dipstick) 30 mg/dL (Neg-Trace)
[2018-11-23 16:11] LABS: Bacteria/HPF 1+ HPF (None Seen); Pregnancy Test - Urine (BHCG) Negative (Negative); Pregu Control Background? CLEAR/WHITE (CLR/WHITE); Pregu Control Bar Appear? YES (CONTROL BAR); RBC/HPF None Seen HPF (0-3); Trichomonas/HPF 1+ HPF (None Seen)
[2018-11-23] MEDS ORDERED: cefTRIAXone\\ROCEPHIN 250 MG VIAL ONE (16:31)
[2018-11-23] MEDS ORDERED: metroNIDAZOLE 500 MG TAB ONE (16:31)
[2018-11-23] MEDS ORDERED: Azithromycin 250 MG TAB ONE (16:31)
[2018-11-23] MEDS ORDERED: Lidocaine 1% MPF 2 ML VIAL ONE (16:31)
[2018-11-25 21:28] LABS: Chlamydia by PCR Not Detected (NotDetected); GC by PCR Not Detected (NotDetected)
== END 2018-11-23 16:56 | disposition home or self-care (01) ==
LOC: SCSER 14:56
DX: A59.01 Trichomonal vulvovaginitis (principal)
CPT/HCPCS: 81003; 81015; 81025; 87480; 87510; 87660; 96372; J0696; J2001

== ENCOUNTER 2018-12-26 15:22 | Emergency (ER) | payer SELFPAY ==
[2018-12-26 16:01] LABS: Bilirubin Negative (Negative); Blood, Urine Negative (Negative); Clarity CLEAR (Clear); Glucose, Urine (Dipstick) Negative (Negative); Leukocyte Negative (Negative); Nitrite Negative (Negative); Protein, Urine (Dipstick) Negative (Neg-Trace); Specific Gravity, Urine 1.025 (1.002-1.036); pH, Urine 5.5 (5.0-9.0)
[2018-12-26 16:17] LABS: BHCG - Serum Negative (NEGATIVE); Pregs Control Background? CLEAR/WHITE (CLR/WHITE); Pregs Control Bar Appear? YES (CONTROL BAR)
== END 2018-12-26 16:38 | disposition home or self-care (01) ==
LOC: ERS 15:22
DX: R11.2 Nausea with vomiting, unspecified (principal)
CPT/HCPCS: 36415; 81003; 84703; 99284

== ENCOUNTER 2019-03-29 21:15 | Emergency (ER) | payer SELFPAY | END 2019-03-29 21:48 | disposition home or self-care (01) | LOC: ERS 21:15 | DX: R11.0 Nausea (principal) | CPT/HCPCS: 99281 ==

== ENCOUNTER 2019-04-03 20:46 | Emergency (ER) | payer SELFPAY ==
[2019-04-03 21:18] LABS: Bilirubin Negative (Negative); Blood, Urine Negative (Negative); Clarity Clear (Clear); Glucose, Urine (Dipstick) Normal (Negative); Leukocyte 500 Leu/uL (Negative); Mucous/LPF Rare LPF (<2+); Nitrite Negative (Negative); Pregnancy Test - Urine (BHCG) Negative (Negative); Pregu Control Background? CLEAR/WHITE (CLR/WHITE); Pregu Control Bar Appear? YES (CONTROL BAR); Protein, Urine (Dipstick) Negative (Neg-Trace); RBC/HPF 0-3 HPF (0-3); Specific Gravity 1.023 (1.002-1.036)
[2019-04-03 21:21] LABS: Bacteria/HPF 1+ HPF (None Seen)
[2019-04-03] MEDS ORDERED: Azithromycin 250 MG TAB ONE (22:45)
[2019-04-03] MEDS ORDERED: cefTRIAXone\\ROCEPHIN 250 MG VIAL ONE (22:45)
[2019-04-03] MEDS ORDERED: Lidocaine 1% PF 5 ML VIAL ONE (22:45)
[2019-04-05 01:40] LABS: Chlamydia by PCR DETECTED (NotDetected); GC by PCR DETECTED (NotDetected)
== END 2019-04-03 22:55 | disposition home or self-care (01) ==
LOC: ERS 20:46
DX: N76.0 Acute vaginitis (principal); B96.89 Other specified bacterial agents as the cause of diseases classified elsewhere; A56.02 Chlamydial vulvovaginitis; A54.02 Gonococcal vulvovaginitis, unspecified
CPT/HCPCS: 81003; 81015; 81025; 87086; 87480; 87491; 87510; 87591; 87660; 96372; 99283; J0696; J2001

== ENCOUNTER 2019-04-23 12:30 | Emergency (ER) | payer SELFPAY ==
[2019-04-23] MEDS ORDERED: Ondansetron ODT 4 MG TAB ONE (12:47)
[2019-04-23] MEDS ORDERED: Ibuprofen 800 MG TAB ONE (12:47)
[2019-04-23] MEDS ORDERED: Dexamethasone 4 mg/ml Vial ONE (14:10)
[2019-04-23] MEDS ORDERED: Acetaminophen 500 MG TAB ONE (14:10)
== END 2019-04-23 14:54 | disposition home or self-care (01) ==
LOC: ERS 12:30
DX: J02.9 Acute pharyngitis, unspecified (principal)
CPT/HCPCS: 87081; 87430; 87804; 99283; J1100; Q0162

== ENCOUNTER 2019-05-27 22:45 | Emergency (ER) | payer SELFPAY ==
[2019-05-27 23:53] LABS: Bilirubin Negative (Negative); Blood, Urine Negative (Negative); Clarity Clear (Clear); Glucose, Urine (Dipstick) Normal (Negative); Leukocyte Negative Leu/uL (Negative); Nitrite Negative (Negative); Pregnancy Test - Urine (BHCG) Negative (Negative); Pregu Control Background? CLEAR/WHITE (CLR/WHITE); Pregu Control Bar Appear? YES (CONTROL BAR); Protein, Urine (Dipstick) 10 mg/dL (Neg-Trace); Specific Gravity 1.023 (1.002-1.036)
[2019-05-28] MEDS ORDERED: Azithromycin 250 MG TAB ONE
[2019-05-28] MEDS ORDERED: cefTRIAXone\\ROCEPHIN 250 MG VIAL ONE
[2019-05-28] MEDS ORDERED: Ondansetron ODT 4 MG TAB ONE
[2019-05-28] MEDS ORDERED: Lidocaine 1% (PF) 30 ML VIAL ONE (00:08)
[2019-05-28 20:11] LABS: Chlamydia by PCR DETECTED (NotDetected); GC by PCR Not Detected (NotDetected)
== END 2019-05-28 00:30 | disposition home or self-care (01) ==
LOC: ERS 22:45
DX: Z20.2 Contact with and (suspected) exposure to infections with a predominantly sexual mode of transmission (principal); N89.8 Other specified noninflammatory disorders of vagina
CPT/HCPCS: 81003; 81025; 87491; 87591; 96372; 99283; J0696; J2001; Q0162

== ENCOUNTER 2019-08-08 14:35 | Emergency (ER) | payer MEDICAID, SELFPAY ==
[2019-08-08 15:13] LABS: #Eosinphils 0.1 thou/uL (0.0-0.7); #Lymphocytes 1.4 thou/uL (1.20-3.40); #Monocytes 0.3 thou/uL (0.11-0.59); #Neutrophils 2.3 thou/uL (1.40-6.50); %Basophils 0.4 % (0.0-1.0); %Eosinophils 1.4 % (0.0-10.0); %Lymphocytes 34.4 % (21.0-51.0); %Monocytes 7.6 % (0.0-10.0); %Neutrophils 56.2 % (42.0-75.0); Hemoglobin 11.7 g/dL (12.0-16.0); Mean Corpuscular Hemoglobin 27.8 pg (27.0-31.0); Mean Corpuscular Volume 81.7 fL (78.0-98.0); Mean Platelet Volume 9.2 fL (7.4-10.4); Platelet Count 211 thou/uL (130-400); RBC Distribution Width 13.7 % (11.5-14.5); Red Blood Cell (RBC) Count 4.22 mill/uL (4.20-5.40); White Blood Cell (WBC) Count 4.1 thou/uL (4.8-10.8)
[2019-08-08 15:35] LABS: ALT (SGPT) 9 U/L (8-55); AST (SGOT) 14 U/L (5-34); Albumin 4.6 g/dL (3.5-5.0); Alkaline Phosphatase 47 U/L (40-110); Anion Gap 11 mmol/L (10-20); BUN (Urea Nitrogen) 9 mg/dL (7.0-18.7); Bilirubin, Total 0.5 mg/dL (0.2-1.2); Calc. Creatinine Clearance 0 mL/min (70-130); Calcium 9.5 mg/dL (7.8-10.44); Carbon Dioxide 23 mmol/L (22-29); Chloride 109 mmol/L (98-107); Estimated GFR-MDRD Greater than 90; Globulin 3.9 g/dL (2.4-3.5); Glucose 94 mg/dL (70-105); Lipase 28 U/L (8-78); Potassium 3.7 mmol/L (3.5-5.1); Protein, Total 8.5 g/dL (6.0-8.3); Sodium 139 mmol/L (136-145)
[2019-08-08 15:38] LABS: Pregnancy Test - Urine (BHCG) Negative (Negative); Pregu Control Background? CLEAR/WHITE (CLR/WHITE); Pregu Control Bar Appear? YES (CONTROL BAR); Specific Gravity 1.022 (1.002-1.036)
[2019-08-08 15:49] LABS: Bilirubin Negative (Negative); Blood, Urine Negative (Negative); Clarity Clear (Clear); Glucose, Urine (Dipstick) Normal (Negative); Leukocyte Negative Leu/uL (Negative); Nitrite Negative (Negative); Protein, Urine (Dipstick) Negative (Neg-Trace)
[2019-08-11 22:26] LABS: Chlamydia by PCR Not Detected (NotDetected); GC by PCR Not Detected (NotDetected)
== END 2019-08-08 17:00 | disposition home or self-care (01) ==
LOC: ERS 14:35
DX: N89.8 Other specified noninflammatory disorders of vagina (principal)
CPT/HCPCS: 36415; 80053; 81003; 81025; 83690; 85025; 87480; 87491; 87510; 87591; 87660; 99283

== ENCOUNTER 2019-08-11 02:48 | Emergency (ER) | payer MEDICAID | END 2019-08-11 03:04 | disposition home or self-care (01) | LOC: ERS 02:48 | DX: Z77.098 Contact with and (suspected) exposure to other hazardous, chiefly nonmedicinal, chemicals (principal) | CPT/HCPCS: 99281 ==

== ENCOUNTER 2020-03-23 22:53 | Emergency (ER) | payer SELFPAY ==
[2020-03-23 23:30] LABS: Bilirubin Negative (Negative); Blood, Urine Negative (Negative); Clarity Clear (Clear); Glucose, Urine (Dipstick) Normal (Negative); Ketone, Urine Negative (Negative); Leukocyte Negative Leu/uL (Negative); Nitrite Negative (Negative); Protein, Urine (Dipstick) 20 mg/dL (Neg-Trace); Specific Gravity, Urine 1.027 (1.002-1.036); pH, Urine 7.5 (5.0-9.0)
[2020-03-23 23:31] LABS: Pregnancy Test - Urine (BHCG) POSITIVE (Negative); Pregu Control Background? CLEAR/WHITE (CLR/WHITE); Pregu Control Bar Appear? YES (CONTROL BAR); Specific Gravity 1.027 (1.002-1.036)
[2020-03-23] MEDS ORDERED: Acetaminophen 500 MG TAB ONE (23:41)
[2020-03-24] LABS: #Eosinphils 0.1 thou/uL (0.0-0.7); #Lymphocytes 1.8 thou/uL (1.20-3.40); #Monocytes 0.5 thou/uL (0.11-0.59); #Neutrophils 2.8 thou/uL (1.40-6.50); %Basophils 0.7 % (0.0-1.0); %Eosinophils 1.1 % (0.0-10.0); %Lymphocytes 35.1 % (21.0-51.0); %Monocytes 9.2 % (0.0-10.0); Mean Corpuscular HGB CONC 33.6 g/dL (32.0-36.0); Mean Corpuscular Hemoglobin 28.6 pg (27.0-31.0); Mean Corpuscular Volume 84.9 fL (78.0-98.0); Mean Platelet Volume 8.8 fL (7.4-10.4); Platelet Count 213 thou/uL (130-400); RBC Distribution Width 14.2 % (11.5-14.5); Red Blood Cell (RBC) Count 4.54 mill/uL (4.20-5.40); White Blood Cell (WBC) Count 5.1 thou/uL (4.8-10.8)
[2020-03-24 00:07] LABS: BHCG - Serum POSITIVE (NEGATIVE); Pregs Control Background? CLEAR/WHITE (CLR/WHITE); Pregs Control Bar Appear? YES (CONTROL BAR)
[2020-03-24 00:19] LABS: ALT (SGPT) 9 U/L (8-55); AST (SGOT) 15 U/L (5-34); Albumin 4.5 g/dL (3.5-5.0); Alkaline Phosphatase 49 U/L (40-110); Anion Gap 12 mmol/L (10-20); BUN (Urea Nitrogen) 8 mg/dL (7.0-18.7); Bilirubin, Total 0.3 mg/dL (0.2-1.2); Calc. Creatinine Clearance 0 mL/min (70-130); Calcium 9.5 mg/dL (7.8-10.44); Carbon Dioxide 25 mmol/L (22-29); Chloride 103 mmol/L (98-107); Estimated GFR-MDRD 85; Globulin 4.1 g/dL (2.4-3.5); Glucose 86 mg/dL (70-105); Potassium 3.7 mmol/L (3.5-5.1); Protein, Total 8.6 g/dL (6.0-8.3); Sodium 136 mmol/L (136-145)
--- NOTE | 2020-03-24 07:49 | ULT ---
PRELIMINARY REPORT/[facility]/EMERGENCY AFTER HOURS PROCEDURE This report was discussed with Mane Boo MD by Patria Serrano on Mar 24, 2020 00:40:00 CDT. Addendum electronically signed by Patria Serrano on March 24, 2020 12:40:31 AM CDT 1ST [facility]ST[facility] ULTRASOUND CLINICAL HISTORY: Pelvic pain x 3 days, light vaginal spotting TECHNIQUE: Real time transabdominal sonographic imaging, including color-flow imaging, was performed by the son ographer. Multiple shared services representative static images were saved for review. COMPARISON: None FINDINGS: There is a single live intrauterine gestation. Yolk sac seen. heart rate is 104 beats per minute. The placenta is not yet visible due to early gestational age. The amniotic fluid appears to be normal. The gestational sac appears to be within normal limits. MEASUREMENTS CRL: 0.38 cm, consistent with 6 weeks 0 days. The uterus measures 11.71 x 3.96 x 6.19 cm. No uterine fibroids are visualized. The right ovary measures 3.43 x 1.84 x 2.43 cm. There are no focal lesions seen. Normal color Doppler flow seen. The left ovary measures 2.80 x 1.43 x 2.85 cm. There are no focal lesions seen. Normal color Doppler flow seen. Average age by ultrasound is 6 weeks 1 day. ISAAC by ultrasound is 11/16/2020. IMPRESSION: 1. Single live intrauterine gestation with FHR of 104 bpm consistent with bradycardia. Mean age by ultrasound is 6 weeks 1 day. ISAAC by ultrasound is 11/16/2020. 2. Recommend structural survey at 20 weeks. ELECTRONICALLY SIGNED BY: Arturo Downs MD Mar 24, 2020 12:35:19 AM CDT This report is intended for review by the ordering physician only, in accordance of law. If you recei ve this report in error, please call [facility] at [phone]. FINAL REPORT Final report by Dr. Hennessy Emergency after-hours study HISTORY: 24-year-old female with first trimester vaginal bleeding. FINDINGS: Agree with preliminary report by [facility]. IMPRESSION: 1. Live first trimester intrauterine gestation with embryonic bradycardia, heart rate 104 bpm. 2. Estimated gestational age 6 weeks 0 days. 3. No subchorionic hemorrhage identified. Transcribed Date/Time: 03/24/2020 8:56 AM
[2020-03-24 20:59] LABS: Chlamydia by PCR Not Detected (NotDetected); GC by PCR Not Detected (NotDetected)
== END 2020-03-24 01:14 | disposition home or self-care (01) ==
LOC: ERS 22:53
DX: O99.89 Other specified diseases and conditions complicating pregnancy, childbirth and the puerperium (principal); R10.30 Lower abdominal pain, unspecified; Z3A.01 Less than 8 weeks gestation of pregnancy
CPT/HCPCS: 36415; 76856; 80053; 81003; 81025; 84702; 84703; 85025; 86900; 86901; 87480; 87491; 87510; 87591; 87660; 93976

== ENCOUNTER 2020-11-09 08:42 | Outpatient (CLI) | payer OTHER ==
[2020-11-09 22:40] LABS: SARS-CoV-2 PCR by NAA Not Detected (NotDetected)
== END 2020-11-09 08:43 | disposition home or self-care (01) ==
LOC: LABBT 08:42
PROVIDERS: ATTEND Family Medicine
DX: Z20.822 Contact with and (suspected) exposure to COVID-19 (principal)
CPT/HCPCS: 87635; U0003; U0005

== ENCOUNTER 2021-07-11 15:33 | Emergency (ER) | payer OTHER ==
[2021-07-11] MEDS ORDERED: Ketorolac Tromethamine 30 MG/ML VIAL ONE (17:07)
[2021-07-11 17:15] LABS: #Basophils 0.1 thou/uL (0.0-0.2); #Lymphocytes 1.5 thou/uL (1.20-3.40); #Monocytes 1.3 thou/uL (0.11-0.59); #Neutrophils 14.8 thou/uL (1.40-6.50); %Basophils 0.3 % (0.0-1.0); %Lymphocytes 8.5 % (21.0-51.0); %Monocytes 7.2 % (0.0-10.0); Hemoglobin 10.9 g/dL (12.0-16.0); Mean Corpuscular HGB CONC 33.5 g/dL (32.0-36.0); Mean Corpuscular Hemoglobin 27.4 pg (27.0-31.0); Mean Corpuscular Volume 81.6 fL (78.0-98.0); Mean Platelet Volume 8.6 fL (7.4-10.4); Platelet Count 199 thou/uL (130-400); RBC Distribution Width 15.5 % (11.5-14.5); Red Blood Cell (RBC) Count 3.97 mill/uL (4.20-5.40); White Blood Cell (WBC) Count 17.7 thou/uL (4.8-10.8)
[2021-07-11 17:16] LABS: Bacteria/HPF 3+ HPF (None Seen); Bilirubin Negative (Negative); Blood, Urine 3+ (Negative); Clarity Turbid (Clear); Glucose, Urine (Dipstick) Normal (Negative); Ketone, Urine Negative (Negative); Leukocyte 25 Leu/uL (Negative); Nitrite 2+ (Negative); Protein, Urine (Dipstick) 20 mg/dL (Neg-Trace); Specific Gravity, Urine 1.017 (1.002-1.036); Urobilinogen Normal mg/dL (Less than 2)
[2021-07-11 17:19] LABS: Pregnancy Test - Urine (BHCG) Negative (Negative); Pregu Control Background? CLEAR/WHITE (CLR/WHITE); Pregu Control Bar Appear? YES (CONTROL BAR); Specific Gravity 1.017 (1.002-1.036)
[2021-07-11 17:36] LABS: ALT (SGPT) 13 U/L (8-55); AST (SGOT) 15 U/L (5-34); Albumin 4.3 g/dL (3.5-5.0); Alkaline Phosphatase 56 U/L (40-110); Anion Gap 14 mmol/L (10-20); BUN (Urea Nitrogen) 6 mg/dL (7.0-18.7); Bilirubin, Total 1.4 mg/dL (0.2-1.2); CK (CPK) 96 U/L (29-168); Calc. Creatinine Clearance 0 mL/min (70-130); Calcium 9.4 mg/dL (7.8-10.44); Carbon Dioxide 21 mmol/L (22-29); Chloride 103 mmol/L (98-107); Globulin 4.1 g/dL (2.4-3.5); Glucose 96 mg/dL (70-105); Potassium 3.4 mmol/L (3.5-5.1); Protein, Total 8.4 g/dL (6.0-8.3); Sodium 135 mmol/L (136-145)
[2021-07-11] MEDS ORDERED: Ciprofloxacin 500 MG TAB ONE (19:13)
== END 2021-07-11 19:26 | disposition home or self-care (01) ==
LOC: ERS 15:33
DX: N10 Acute pyelonephritis (principal)
CPT/HCPCS: 80053; 81003; 81015; 81025; 82550; 85025; 96374; J1885

== ENCOUNTER 2022-05-24 19:30 | Emergency (ER) | payer OTHER ==
[2022-05-24] MEDS ORDERED: Dexameth. Sod Phosp. 10 MG/ML (CHEMO USE ONLY) ONE (21:11)
[2022-05-24] MEDS ORDERED: Bicillin LA 1.2 MILLION UNITS/2 ML SYRINGE IM SCH (21:30)
== END 2022-05-24 22:45 | disposition home or self-care (01) ==
LOC: ERS 19:30
DX: J02.0 Streptococcal pharyngitis (principal); B37.31 Acute candidiasis of vulva and vagina
CPT/HCPCS: 96372; 99283; J0561; J1100

== ENCOUNTER 2022-06-16 10:10 | Emergency (ER) | payer OTHER ==
[2022-06-16 11:56] LABS: Pregnancy Test - Urine (BHCG) Negative (Negative); Pregu Control Background? CLEAR/WHITE (CLR/WHITE); Pregu Control Bar Appear? YES (CONTROL BAR); Specific Gravity 1.015 (1.002-1.036)
[2022-06-16 12:53] LABS: Bacteria/HPF 4+ HPF (None Seen); Bilirubin Negative (Negative); Blood, Urine Negative (Negative); Clarity Cloudy (Clear); Glucose, Urine (Dipstick) Normal (Negative); Ketone, Urine Negative (Negative); Leukocyte 250 Leu/uL (Negative); Nitrite 2+ (Negative); Protein, Urine (Dipstick) 10 mg/dL (Neg-Trace); RBC/HPF 0-3 HPF (0-3); Specific Gravity, Urine 1.017 (1.002-1.036); Urobilinogen Normal mg/dL (Less than 2); WBC/HPF 21-50 HPF (0-3)
== END 2022-06-16 13:27 | disposition home or self-care (01) ==
LOC: ERS 10:10
DX: N39.0 Urinary tract infection, site not specified (principal)
CPT/HCPCS: 81003; 81015; 81025; 87077; 87086; 87186; 99283

== ENCOUNTER 2022-06-19 23:59 | Emergency (ER) | payer OTHER ==
[2022-06-20] MEDS ORDERED: predniSONE 20 MG TAB ONE (01:04)
[2022-06-20] MEDS ORDERED: diphenhydrAMINE 25 MG CAP ONE (01:04)
[2022-06-20] MEDS ORDERED: Famotidine 20 MG TAB ONE (01:04)
== END 2022-06-20 03:05 | disposition home or self-care (01) ==
LOC: ERS 23:59
DX: T78.40XA Allergy, unspecified, initial encounter (principal); N39.0 Urinary tract infection, site not specified
CPT/HCPCS: 99283; J7512

== ENCOUNTER 2023-06-17 13:38 | Emergency (ER) | payer OTHER, SELFPAY ==
[2023-06-17] MEDS ORDERED: Ibuprofen 200 MG TAB ONE ×2 (15:17→15:18)
[2023-06-17] MEDS ORDERED: Dexamethasone 10 MG/ML VIAL ONE (15:17)
== END 2023-06-17 15:59 | disposition home or self-care (01) ==
LOC: ERS 13:38
DX: J02.9 Acute pharyngitis, unspecified (principal)
CPT/HCPCS: 87081; 87430; 99283; J1100

== ENCOUNTER 2023-09-13 15:02 | Emergency (ER) | payer SELFPAY ==
[2023-09-13] MEDS ORDERED: Lidocaine 1% PF 5 ML VIAL ONE (16:22)
[2023-09-13] MEDS ORDERED: cefTRIAXone (ROCEPHIN) 500 MG VIAL ONE (16:22)
[2023-09-13 16:51] LABS: Bacteria/HPF None Seen HPF (None Seen); Bilirubin Negative (Negative); Blood, Urine Negative (Negative); CAUTI Indications for Culture Pelvic or flank pain; Clarity Clear (Clear); Glucose, Urine (Dipstick) Normal (Negative); Ketone, Urine Negative (Negative); Leukocyte Negative Leu/uL (Negative); Nitrite Negative (Negative); Protein, Urine (Dipstick) 10 mg/dL (Neg-Trace); RBC/HPF 0-3 HPF (0-3); Urobilinogen Normal mg/dL (Less than 2); WBC/HPF 0-3 HPF (0-3)
[2023-09-13 16:52] LABS: Pregnancy Test - Urine (BHCG) Negative (Negative); Pregu Control Background? CLEAR/WHITE (CLR/WHITE); Pregu Control Bar Appear? YES (CONTROL BAR)
[2023-09-13 16:53] LABS: Urine Culture Reflex No No
[2023-09-15 12:01] LABS: Chlamydia by PCR, Vaginal Swab *Indeterminate (NotDetected); Tric.vaginalis PCR,Vaginal Sw *Indeterminate (NotDetected)
== END 2023-09-13 16:00 | disposition home or self-care (01) ==
LOC: ERS 15:02
DX: N89.8 Other specified noninflammatory disorders of vagina (principal); Z20.2 Contact with and (suspected) exposure to infections with a predominantly sexual mode of transmission
CPT/HCPCS: 81001; 81025; 87480; 87491; 87510; 87591; 87660; 87661; 96372; 99283; J0696

== ENCOUNTER 2024-01-22 21:24 | Emergency (ER) | payer OTHER, SELFPAY ==
[2024-01-22 22:11] LABS: #Basophils Less than 0.03 10x3/uL (0.0-0.2); %Basophils 0.4 % (0.0-1.0); %Eosinophils 1.6 % (0.0-10.0); %Lymphocytes 29.7 % (21.0-51.0); %Monocytes 6.4 % (0.0-10.0); %Neutrophils 61.7 % (42.0-75.0); Hematocrit 34.7 % (36.0-47.0); Hemoglobin 10.9 g/dL (12.0-16.0); Mean Corpuscular HGB CONC 31.4 g/dL (32.0-36.0); Mean Corpuscular Hemoglobin 25.5 pg (27.0-31.0); Mean Corpuscular Volume 81.3 fL (78.0-98.0); Mean Platelet Volume 10.9 fL (7.4-10.4); Platelet Count 283 10x3/uL (130-400); RBC Distribution Width 16.2 % (11.5-14.5); Red Blood Cell (RBC) Count 4.27 mill/uL (4.20-5.40)
[2024-01-22 22:25] LABS: ALT (SGPT) 7 U/L (8-55); AST (SGOT) 15 U/L (5-34); Albumin 4.3 g/dL (3.5-5.0); Alkaline Phosphatase 39 U/L (40-110); Anion Gap 14 mmol/L (10-20); BUN (Urea Nitrogen) 8 mg/dL (7.0-18.7); Bilirubin, Total 0.9 mg/dL (0.2-1.2); Calc. Creatinine Clearance 0 mL/min (70-130); Calcium 9.6 mg/dL (7.8-10.44); Carbon Dioxide 21 mmol/L (22-29); Chloride 107 mmol/L (98-107); Estimated GFR 95; Glucose 86 mg/dL (70-105); Potassium 3.3 mmol/L (3.5-5.1); Protein, Total 8.3 g/dL (6.0-8.3); Sodium 139 mmol/L (136-145)
[2024-01-22 22:29] LABS: Troponin I Less than 0.010 ng/mL (< 0.028)
[2024-01-22 22:42] LABS: BHCG - Serum Negative (NEGATIVE); Pregs Control Background? CLEAR/WHITE (CLR/WHITE); Pregs Control Bar Appear? YES (CONTROL BAR)
[2024-01-22] MEDS ORDERED: Acetaminophen 500 MG TAB ONE (22:53)
[2024-01-22] MEDS ORDERED: Potassium Chloride 20 MEQ TAB ONE ×2 (22:53→22:55)
== END 2024-01-22 22:58 | disposition home or self-care (01) ==
LOC: ERS 21:24
DX: R07.9 Chest pain, unspecified (principal); E87.6 Hypokalemia; Z55.6 Problems related to health literacy
CPT/HCPCS: 36415; 71045; 80053; 84484; 84703; 85025; 93005

== ENCOUNTER 2024-07-22 14:40 | Emergency (ER) | payer SELFPAY ==
[2024-07-22] MEDS ORDERED: Cyclobenzaprine 10 MG TAB ONE (15:57)
[2024-07-22] MEDS ORDERED: predniSONE 20 MG TAB ONE (15:57)
[2024-07-22] MEDS ORDERED: Naproxen 500 MG TAB ONE (15:57)
[2024-07-22 16:15] LABS: Pregnancy Test - Urine (BHCG) Negative (Negative); Pregu Control Background? CLEAR/WHITE (CLR/WHITE); Pregu Control Bar Appear? YES (CONTROL BAR); Specific Gravity 1.016 (1.002-1.036)
[2024-07-22 16:19] LABS: Bacteria/HPF None Seen HPF (None Seen); Bilirubin Negative (Negative); Blood, Urine Negative (Negative); CAUTI Indications for Culture Pelvic or flank pain; Clarity Turbid (Clear); Glucose, Urine (Dipstick) Normal (Negative); Ketone, Urine Negative (Negative); Leukocyte Negative Leu/uL (Negative); Nitrite Negative (Negative); Protein, Urine (Dipstick) Negative (Neg-Trace); RBC/HPF 0-3 HPF (0-3); Specific Gravity, Urine 1.012 (1.002-1.036); Urobilinogen Normal mg/dL (Less than 2); WBC/HPF 0-3 HPF (0-3)
[2024-07-22 16:20] LABS: Urine Culture Reflex No No
== END 2024-07-22 17:20 | disposition home or self-care (01) ==
LOC: ERS 14:40
DX: M54.50 Low back pain, unspecified (principal)
CPT/HCPCS: 81001; 81025; 99283; J7512